=== PATIENT | female | born 1985 | race American Indian/Alaskan Native ===

== ENCOUNTER 2018-11-20 11:09 | Emergency (ER) | payer OTHER ==
[2018-11-20 11:41] VITALS: BP 119/62
--- NOTE | 2018-11-20 12:53 | Emergency Department Report ---
ED Female HPI - General Chief complaint: Abdominal Pain Stated complaint: VAGINAL INFECTION/SINUS Time Seen by Provider: 11/20/18 12:37 Source: patient Mode of arrival: Ambulatory Limitations: No Limitations - History of Present Illness Initial comments: This is a 33 year-old female presents with vaginal discharge and sinus congestion for 2 months. Patient states she took Monistat 3 day with symptoms initially started which improved discharge for a few days and then shortly returned. Patient reports itching to labia majora. Her last menstrual. The symptoms 2017, 82. She denies pelvic pain, back pain, vaginal bleeding, urinary frequency, urgency, hematuria, and dysuria. MD Complaint: vaginal discharge Onset/Timin -: month(s) Location: labia Radiation: non-radiating Severity: mild Severity scale (0 -10): 0 Quality: other (itching) Consistency: constant Improves with: none Worsens with: none Are you Now?: Yes Last Menstrual Period: 09/04/18 EDC: 06/11/19 Associated Symptoms: denies other symptoms - Related Data Sexually active: Yes : 6 Para: 4 A: 2 (stillbirth) Previous Rx's Medication Instructions Recorded Last Taken Type Fluticasone [Flonase] 1 spray NS QDAY #1 bottle 11/20/18 Unknown Rx Miconazole Nitrate [Miconazole 7] 100 mg VG QHS #7 supp.vag 11/20/18 Unknown Rx metroNIDAZOLE [Flagyl TAB] 500 mg PO Q12HR #14 tab 11/20/18 Unknown Rx Allergies Allergy/AdvReac Type Severity Reaction Status Date / Time No Known Allergies Allergy Unverified 11/20/18 11:10 ED Review of Systems ROS: Stated complaint: VAGINAL INFECTION/SINUS Other details as noted in HPI Constitutional: denies: chills, fever ENT: congestion. denies: ear pain, throat pain Respiratory: denies: cough, shortness of breath, wheezing Cardiovascular: denies: chest pain, palpitations Gastrointestinal: denies: abdominal pain, nausea, diarrhea Genitourinary: discharge. denies: urgency, dysuria Musculoskeletal: denies: back pain, joint swelling, arthralgia Neurological: denies: headache, weakness, paresthesias Psychiatric: denies: anxiety, depression ED Past Medical Hx - Past Medical History Previous Medical History?: No - Surgical History Past Surgical History?: No - Social History Smoking Status: Never Smoker Substance Use Type: None - Medications Home Medications: Home Medications Medication Instructions Recorded Confirmed Last Taken Type Fluticasone [Flonase] 1 spray NS QDAY #1 bottle 11/20/18 Unknown Rx Miconazole Nitrate [Miconazole 7] 100 mg VG QHS #7 supp.vag 11/20/18 Unknown Rx metroNIDAZOLE [Flagyl TAB] 500 mg PO Q12HR #14 tab 11/20/18 Unknown Rx ED Physical Exam - General Limitations: No Limitations General appearance: alert, in no apparent distress - ENT ENT exam: Present: normal orophraynx, mucous membranes moist, TM's normal bilaterally, normal external ear exam, other (turbinates mildly congested with clear discharge). Absent: mucous membranes dry - Respiratory Respiratory exam: Present: normal lung sounds bilaterally. Absent: respiratory distress - Cardiovascular Cardiovascular Exam: Present: regular rate, normal rhythm. Absent: systolic murmur, diastolic murmur, rubs, gallop - GI/Abdominal GI/Abdominal exam: Present: soft, normal bowel sounds - External exam: Present: normal external exam. Absent: erythema, swelling, lesions, lacerations, ecchymosis, bleeding Speculum exam: Present: vaginal discharge (malodorous white discharge). Absent: cervical discharge, vaginal bleeding, foreign body, tissue, laceration Bi-manual exam: Present: uterine enlargement. Absent: cervical motion tendernes - Back Exam Back exam: Absent: CVA tenderness (R), CVA tenderness (L) - Neurological Exam Neurological exam: Present: alert, oriented X3 - Psychiatric Psychiatric exam: Present: normal affect, normal mood - Skin Skin exam: Present: warm, dry, intact, normal color. Absent: rash ED Course Vital Signs 11/20/18 11:39 Temperature 98 F Pulse Rate 91 H Respiratory 16 Rate Blood Pressure 119/62 [Left] O2 Sat by Pulse 100 Oximetry ED Medical Decision Making - Medical Decision Making This is a 33-year-old -[place] female who presents with vaginal irritation and discharge for 2 month. Patient was examined by me. Vitals are stable and in no acute distress. Pelvic exam, wet prep and gonorrhea and chlamydia obtained. Urinalysis and urine test obtained. Positive , patient is 3 months . Urinalysis mild elevation of WBCs and leukocyte esterase. Positive he yeast and clue cells on wet prep. Start metronidazole and miconazole for acute vaginitis and vaginal yeast infection. Discharged home in stable condition. Discussed prevention options. F/U with [facility] INTER[facility]ION[facility]. Critical care attestation.: If time is entered above; I have spent that time in minutes in the direct care of this critically ill patient, excluding procedure time. ED Disposition Clinical Impression: Bacterial vaginitis, Vaginal yeast infection, Vaginal discharge Rhinitis Qualifiers: Rhinitis type: acute Qualified Code(s): J00 - Acute nasopharyngitis [common cold] Disposition: TO HOME OR SELFCARE Is pt being admited?: No Does the pt Need Aspirin: No Condition: Stable Instructions: Abdominal Pain (ED), Bacterial Vaginosis (ED) Additional Instructions: Complete full course of antibiotics since prescribed. Continue safe sexual intercourse. Take Claritin once a day for congestion. 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 Prescriptions: Miconazole Nitrate [Miconazole 7] 100 mg VG QHS #7 supp.vag metroNIDAZOLE [Flagyl TAB] 500 mg PO Q12HR #14 tab Fluticasone [Flonase] 1 spray NS QDAY #1 bottle [facility] AWIL[facility] [Primary Care Provider] - 3-5 Days [facility] [Provider Group] - 3-5 Days [facility] [Provider Group] - 3-5 Days [facility] [Provider Group] - 3-5 Days Forms: STI Treatment and Prevention Time of Disposition: 14:27
[2018-11-20 13:10] LABS: Bacteria,Urine 2+ /HPF (Negative); Bilirubin,Urine NEG (Negative); Blood,Urine NEG (Negative); Color,Urine Amber (Yellow); Mucus,Urine 3+ /HPF
[2018-11-20 13:12] LABS: HCG Qualitative,Urine Positive (Negative)
== END 2018-11-20 14:45 | disposition home or self-care (01) ==
LOC: ED 11:09
DX: O23.591 Infection of other part of genital tract in pregnancy, first trimester (principal); B96.89 Other specified bacterial agents as the cause of diseases classified elsewhere; O98.811 Other maternal infectious and parasitic diseases complicating pregnancy, first trimester; B37.9 Candidiasis, unspecified; O99.511 Diseases of the respiratory system complicating pregnancy, first trimester; J31.0 Chronic rhinitis; Z3A.12 12 weeks gestation of pregnancy
CPT/HCPCS: 36415; 81001; 81025; 84703; 87210; 87591

== ENCOUNTER 2019-02-03 02:06 | Inpatient (IN) | payer OTHER ==
[2019-02-03 02:54] LABS: Basophils % (Auto) 0.4 % (0.0-1.8); Eosinophils # (Auto) 0.4 K/mm3 (0.0-0.4); Eosinophils % (Auto) 3.9 % (0.0-4.3); Hematocrit 22.9 % (30.3-42.9); Hemoglobin 6.8 gm/dl (10.1-14.3); Lymphocytes # (Auto) 2.5 K/mm3 (1.2-5.4); Lymphocytes % (Auto) 27.6 % (13.4-35.0); Mean Corpuscular HGB Conc 30 % (30-34); Monocytes # (Auto) 0.8 K/mm3 (0.0-0.8); Monocytes % (Auto) 8.8 % (0.0-7.3); Platelet Count 428 K/mm3 (140-440); Red Blood Count 3.98 M/mm3 (3.65-5.03)
[2019-02-03 03:08] LABS: BUN/Creatinine Ratio 12; Blood Urea Nitrogen 6 mg/dL (7-17); Calcium 8.4 mg/dL (8.4-10.2); Hemolysis Index 1
[2019-02-03 03:13] LABS: Mean Corpuscular Volume 58 fl (79-97); Red Cell Distribution Width 21.7 % (13.2-15.2)
--- NOTE | 2019-02-03 06:19 | Emergency Department Report ---
ED General Adult HPI - General Chief complaint: Headache Stated complaint: HEADACHE, LIGHT HEADED, LOWER BACK PAIN Time Seen by Provider: 02/03/19 06:18 Source: patient Mode of arrival: Ambulatory Limitations: No Limitations - History of Present Illness Initial comments: 33-year-old female believes that she is anemic like her previous 2 pregnancies. She states that she gets a headache when she is anemic but it is not severe. She does not complain of headache at this time. She came to the emergency Department simply because she felt like she probably needed a transfusion. She does have some generalized weakness but is not complaining of dyspnea at rest. She is 20 weeks and 5 days. She reports no signs of GI bleeding. She does not have an OB physician. -: Gradual, week(s) Location: head Severity scale (0 -10): 0 Consistency: now resolved Improves with: none Worsens with: none Associated Symptoms: weakness - Related Data Previous Rx's Medication Instructions Recorded Last Taken Type Fluticasone [Flonase] 1 spray NS QDAY #1 bottle 11/20/18 Unknown Rx Miconazole Nitrate [Miconazole 7] 100 mg VG QHS #7 supp.vag 11/20/18 Unknown Rx metroNIDAZOLE [Flagyl TAB] 500 mg PO Q12HR #14 tab 11/20/18 Unknown Rx Allergies Allergy/AdvReac Type Severity Reaction Status Date / Time No Known Allergies Allergy Verified 02/03/19 02:13 ED Review of Systems ROS: Stated complaint: HEADACHE, LIGHT HEADED, LOWER BACK PAIN Other details as noted in HPI Constitutional: weakness. denies: chills, fever Eyes: denies: eye pain, eye discharge, vision change ENT: denies: ear pain, throat pain Respiratory: denies: cough, shortness of breath, wheezing Cardiovascular: denies: chest pain, palpitations Endocrine: no symptoms reported Gastrointestinal: denies: abdominal pain, nausea, diarrhea Genitourinary: as per HPI (20 weeks ). denies: urgency, dysuria, discharge Musculoskeletal: denies: back pain, joint swelling, arthralgia Skin: denies: rash, lesions Neurological: denies: headache, weakness, paresthesias Psychiatric: denies: anxiety, depression Hematological/Lymphatic: denies: easy bleeding, easy bruising ED Past Medical Hx - Past Medical History Previous Medical History?: No Additional medical history: Prior transfusion with last 2 pregnancies. Denies previous preeclampsia - Surgical History Past Surgical History?: Yes Additional Surgical History: hernia. x5 - Social History Smoking Status: Never Smoker Substance Use Type: None - Medications Home Medications: Home Medications Medication Instructions Recorded Confirmed Last Taken Type Fluticasone [Flonase] 1 spray NS QDAY #1 bottle 11/20/18 Unknown Rx Miconazole Nitrate [Miconazole 7] 100 mg VG QHS #7 supp.vag 11/20/18 Unknown Rx metroNIDAZOLE [Flagyl TAB] 500 mg PO Q12HR #14 tab 11/20/18 Unknown Rx ED Physical Exam - General Limitations: No Limitations General appearance: alert, in no apparent distress - Head Head exam: Present: atraumatic, normocephalic - Eye Eye exam: Present: normal appearance. Absent: scleral icterus - ENT ENT exam: Present: mucous membranes moist - Neck Neck exam: Present: normal inspection. Absent: tenderness, meningismus - Respiratory Respiratory exam: Present: normal lung sounds bilaterally. Absent: respiratory distress - Cardiovascular Cardiovascular Exam: Present: regular rate, normal rhythm. Absent: systolic murmur, diastolic murmur, rubs, gallop - GI/Abdominal GI/Abdominal exam: Present: soft, normal bowel sounds, other (uterus is consiste nt with gestational age. heart rate over 170). Absent: tenderness, guarding, rebound, rigid - Extremities Exam Extremities exam: Present: normal inspection. Absent: pedal edema, joint swelling, calf tenderness - Back Exam Back exam: Present: normal inspection - Neurological Exam Neurological exam: Present: alert, oriented X3, CN II-XII intact. Absent: motor sensory deficit - Psychiatric Psychiatric exam: Present: normal affect, normal mood - Skin Skin exam: Present: warm, dry, intact, normal color. Absent: rash ED Course Vital Signs 02/03/19 02/03/19 02/03/19 02:08 02:10 04:49 Temperature 98.3 F 98.3 F Pulse Rate 83 89 Respiratory 18 18 Rate Blood Pressure 111/58 111/58 Blood Pressure [Left] O2 Sat by Pulse 99 99 99 Oximetry 02/03/19 02/03/19 02/03/19 05:00 05:10 05:13 Temperature 98.4 F Pulse Rate 76 Respiratory 20 20 Rate Blood Pressure 94/52 Blood Pressure 94/52 [Left] O2 Sat by Pulse 96 97 99 Oximetry 02/03/19 02/03/19 02/03/19 05:15 05:30 05:45 Temperature Pulse Rate Respiratory Rate Blood Pressure 96/53 95/58 98/50 Blood Pressure [Left] O2 Sat by Pulse 97 Oximetry 02/03/19 02/03/19 02/03/19 06:00 06:15 06:30 Temperature Pulse Rate Respiratory Rate Blood Pressure 102/57 93/55 97/57 Blood Pressure [Left] O2 Sat by Pulse 96 Oximetry 02/03/19 06:45 Temperature Pulse Rate Respiratory Rate Blood Pressure 102/56 Blood Pressure [Left] O2 Sat by Pulse Oximetry - Reevaluation(s) Reevaluation #1: Discussed with Dr. Tirado, jeep driver. Give patient 2 units. Admit to mother/baby. Nasal cannula at 2 L. 02/03/19 07:20 ED Medical Decision Making - Lab Data Result diagrams: 02/03/19 02:23 02/03/19 02:23 Laboratory Results - last 24 hr 02/03/19 02/03/19 02/03/19 02:23 02:23 02:23 WBC 9.1 RBC 3.98 Hgb 6.8 L Hct 22.9 L MCV 58 L MCH 17 L MCHC 30 RDW 21.7 H Plt Count 428 Lymph % (Auto) 27.6 [place] % (Auto) 8.8 H Eos % (Auto) 3.9 Baso % (Auto) 0.4 Lymph # 2.5 [place] # 0.8 Eos # 0.4 Baso # 0.0 Seg Neutrophils % 59.3 Seg Neutrophils # 5.4 Sodium 136 L Potassium 3.5 L Chloride 102.5 Carbon Dioxide 23 Anion Gap 14 BUN 6 L Creatinine 0.5 L Estimated GFR > 60 BUN/Creatinine Ratio 12 Glucose 82 Calcium 8.4 HCG, Quant 21814 H Blood Type Antibody Screen 02/03/19 03:49 WBC RBC Hgb Hct MCV MCH MCHC RDW Plt Count Lymph % (Auto) [place] % (Auto) Eos % (Auto) Baso % (Auto) Lymph # [place] # Eos # Baso # Seg Neutrophils % Seg Neutrophils # Sodium Potassium Chloride Carbon Dioxide Anion Gap BUN Creatinine Estimated GFR BUN/Creatinine Ratio Glucose Calcium HCG, Quant Blood Type O POSITIVE Antibody Screen Negative Critical care attestation.: If time is entered above; I have spent that time in minutes in the direct care of this critically ill patient, excluding procedure time. ED Disposition Clinical Impression: Symptomatic anemia, 20 weeks gestation of , tachycardia Disposition: OP ADMIT IP TO THIS HOSP Is pt being admited?: No Does the pt Need Aspirin: No Condition: Stable Referrals: JANE PULLIAM MD [Primary Care Provider] - 3-5 Days Time of Disposition: 07:22
[2019-02-03] MEDS ORDERED: NACL 0.9% 500 ML 500 ML IV ONE ×2 (06:20→07:22)
[2019-02-03] MEDS ORDERED: TYLENOL PO PRN (09:30)
--- NOTE | 2019-02-03 09:53 | History and Physical Report ---
History of Present Illness Date of admission: 02/03/19 07:23 Chief complaint: "my iron is low" History of present illness: 33yo , 21 5/7 wks with history of 5 previous sections presents, to ED complaining that she believes she needs a blood transfusion. She states "This baby is ruining my body. I'm not keeping it." When asked if she felt lightheaded or had a headache after asking multiple times, the patient begrudgingly states "yes." She states I'm not having this baby I'm scheduled for an on Saturday at [facility] in [facility]. She has not sought a doctor for this . She has history of 3-4 blood transfusions over the last 3 years. She denies chest pain or shortness of breath. She asks if she can be discharged after her blood transfusion because she has other children to take care of. 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) Social history: lives with family - Obstetrical History : 6 Hx # Term Pregnancies: 4 Number of Pregnancies: 1 Number of Living Children: 4 (age 15, 13, 3 and 2; loss of second trimester twins 10 years ago) Medications and Allergies Allergies Allergy/AdvReac Type Severity Reaction Status Date / Time No Known Allergies Allergy Verified 02/03/19 02:13 Home Medications Medication Instructions Recorded Confirmed Last Taken Type Fluticasone [Flonase] 1 spray NS QDAY #1 bottle 11/20/18 Unknown Rx Miconazole Nitrate [Miconazole 7] 100 mg VG QHS #7 supp.vag 11/20/18 Unknown Rx metroNIDAZOLE [Flagyl TAB] 500 mg PO Q12HR #14 tab 11/20/18 Unknown Rx Active Meds: Active Medications Acetaminophen (Tylenol) 650 mg PO Q4H PRN PRN Reason: Pain, Mild (1-3) Last Admin: 02/03/19 09:26 Dose: 650 mg Documented by: - Vital Signs Vital signs: Vital Signs Temp Pulse Resp BP Pulse Ox 98.3 F 83 18 111/58 99 02/03/19 02:08 02/03/19 02:08 02/03/19 02:08 02/03/19 02:08 02/03/19 02:08 Temp Pulse Resp BP Pulse Ox 98.5 F 85 18 85/47 98 02/03/19 09:45 02/03/19 09:52 02/03/19 09:45 02/03/19 09:52 02/03/19 08:15 - Obstetrical FHR: auscultation normal (FHT confirmed on admission and prior to discharge. ) Results Result Diagrams: 02/03/19 16:00 02/03/19 02:23 Abnormal lab results 02/03/19 02/03/19 02/03/19 Range/Units 02:23 02:23 02:23 Hgb 6.8 L (10.1-14.3) gm/dl Hct 22.9 L (30.3-42.9) % MCV 58 L (79-97) fl MCH 17 L (28-32) pg RDW 21.7 H (13.2-15.2) % Caroline % (Auto) 8.8 H (0.0-7.3) % Sodium 136 L (137-145) mmol/L Potassium 3.5 L (3.6-5.0) mmol/L BUN 6 L (7-17) mg/dL Creatinine 0.5 L (0.7-1.2) mg/dL HCG, Quant 78933 H (0-4) mIU/mL Crossmatch 02/03/19 Range/Units 03:49 Hgb (10.1-14.3) gm/dl Hct (30.3-42.9) % MCV (79-97) fl MCH (28-32) pg RDW (13.2-15.2) % Caroline % (Auto) (0.0-7.3) % Sodium (137-145) mmol/L Potassium (3.6-5.0) mmol/L BUN (7-17) mg/dL Creatinine (0.7-1.2) mg/dL HCG, Quant (0-4) mIU/mL Crossmatch See Detail All other labs normal. Assessment and Plan - Patient Problems (1) 21 weeks gestation of Status: Acute Plan to address problem: Counseled patient on need to find obstetricain JASON. Recommend [facility] such a [place] due to HIGH RISK OF PREVIOUS FIVE SECTIONS. Discussed risk of UTERINE RUPTURE and PLACENTA ACCRETA. Patient then states she is terminating this week. (2) Symptomatic anemia Status: Acute Plan to address problem: Transfuse 2 units pRBCs. Will reassess and consider discharge home after post-transfusion H/H.
[2019-02-03 16:07] LABS: Hematocrit 25.3 % (30.3-42.9); Hemoglobin 7.7 gm/dl (10.1-14.3); Mean Corpuscular HGB Conc 30 % (30-34); Platelet Count 361 K/mm3 (140-440); Red Blood Count 4.03 M/mm3 (3.65-5.03)
[2019-02-03 16:15] LABS: Mean Corpuscular Volume 63 fl (79-97); Red Cell Distribution Width 28.2 % (13.2-15.2)
[2019-02-03 16:18] LABS: Bacteria,Urine 1+ /HPF (Negative); Bilirubin,Urine NEG (Negative); Blood,Urine NEG (Negative); Color,Urine Yellow (Yellow); Mucus,Urine 3+ /HPF; Protein,Urine <15 mg/dL mg/dL (Negative)
[2019-02-03 16:19] LABS: WBC,Urine < 1.0 /HPF (0.0-6.0)
[2019-02-03 16:59] VITALS: BP 100/57
[2019-02-03 17:49] LABS: Basophils % (Manual) 0 % (0.0-1.8); Hypochromasia 2+; Total Cells Counted 100
[2019-02-03 17:50] LABS: Dimorphic RBC Yes; Ovalocytes 1+; Tear Drop Cells Few
[2019-02-03 17:51] LABS: Platelet Estimate Consistent w Auto
== END 2019-02-03 17:31 | disposition home or self-care (01) | DRG 781 ==
LOC: ED 02:06 → OB 07:23 → LD 08:18
PROVIDERS: ADMIT Obstetrics & Gynecology; ATTEND Obstetrics & Gynecology
PROC: 30243N1 Transfusion of Nonautologous Red Blood Cells into Central Vein, Percutaneous Approach (ICD-10-PCS; principal; 2019-02-03)
DX: O99.012 Anemia complicating pregnancy, second trimester (principal); O76 Abnormality in fetal heart rate and rhythm complicating labor and delivery; R51 Headache; D64.9 Anemia, unspecified; Z3A.20 20 weeks gestation of pregnancy
CPT/HCPCS: 36415; 36430; 80048; 81001; 84702; 85007; 85025; 86850; 86900; 86901; 86920; G0378; J7040; P9016

== ENCOUNTER 2020-07-15 18:29 | Emergency (ER) | payer OTHER ==
[2020-07-15 20:13] LABS: Basophils % (Auto) 0.5 % (0.0-1.8); Eosinophils % (Auto) 0.6 % (0.0-4.3); Lymphocytes # (Auto) 1.7 K/mm3 (1.2-5.4); Lymphocytes % (Auto) 25.9 % (13.4-35.0); Mean Corpuscular HGB Conc 30 % (30-34); Monocytes # (Auto) 0.5 K/mm3 (0.0-0.8); Monocytes % (Auto) 8.5 % (0.0-7.3); Platelet Count 456 K/mm3 (140-440)
[2020-07-15 20:16] LABS: Hemoglobin 8.6 gm/dl (10.1-14.3); Mean Corpuscular Volume 62 fl (79-97); Red Cell Distribution Width 21.5 % (13.2-15.2)
[2020-07-15 20:28] LABS: Alanine Aminotransferase 14 units/L (7-56); Albumin 4.2 g/dL (3.9-5); Blood Urea Nitrogen 8 mg/dL (7-17); Calcium 9.6 mg/dL (8.4-10.2); Hemolysis Index 1
[2020-07-15 20:33] LABS: BUN/Creatinine Ratio 11
[2020-07-16] MEDS ORDERED: ONDANSETRON 4 MG/2 ML INJ IM ONE (01:44)
[2020-07-16] MEDS ORDERED: BUTALB/ACETAMINOPHEN/CAFFEINE TAB PO ONE (01:44)
[2020-07-16] MEDS ORDERED: fentaNYL 100 MCG/2 ML INJ IM ONE (01:44)
--- NOTE | 2020-07-16 01:49 | Emergency Department Report ---
HPI - General Chief Complaint: Neuro Symptoms/Deficit Time Seen by Provider: 07/16/20 01:26 - HPI HPI: Room 24 The patient is a 35-year-old female present with a chief complaint of headache. The patient states for 1 week she has had intermittent diffuse headache described as sharp in nature and associated with feeling off balance, nausea/vomiting and light sensitivity. Patient states at times she sees colored patterns. The patient states she would have symptoms 2-3 times a day initially but the frequency has increased. Patient states the symptoms usually last approximately 1 hour before dissipating. Patient denies any preceding trauma, fever or contact with known Covid positive patients. There is been no family history of migraine headaches. Patient currently gives her headache a score of 5/10. The patient states she has had a left breast mass for several weeks but has not yet had it evaluated. The patient was brought to the emergency department by her family member and is not driving ED Past Medical Hx - Past Medical History Previous Medical History?: Yes Additional medical history: Anemia - Surgical History Past Surgical History?: Yes Additional Surgical History: hernia. x5 - Family History Family history: no significant - Social History Smoking Status: Never Smoker Substance Use Type: None (Denies illicit drug use) - Medications Home Medications: Home Medications Medication Instructions Recorded Confirmed Last Taken Type Fluticasone [Flonase] 1 spray NS QDAY #1 bottle 11/20/18 Unknown Rx Miconazole Nitrate [Miconazole 7] 100 mg VG QHS #7 supp.vag 11/20/18 Unknown Rx metroNIDAZOLE [Flagyl TAB] 500 mg PO Q12HR #14 tab 11/20/18 Unknown Rx ED Review of Systems ROS: Stated complaint: NAUSEA/HEADACHE/LFT HAND TINGLE Other details as noted in HPI Constitutional: denies: fever Eyes: vision change ENT: denies: throat pain Respiratory: no symptoms reported Cardiovascular: denies: chest pain Endocrine: no symptoms reported Gastrointestinal: nausea, vomiting Genitourinary: denies: dysuria Musculoskeletal: denies: back pain Neurological: headache Physical Exam - Physical Exam Vital Signs: Vital Signs 07/15/20 07/15/20 19:39 20:33 Temperature 98.5 F Pulse Rate 65 Respiratory 18 Rate Blood Pressure 141/77 O2 Sat by Pulse 96 Oximetry Physical Exam: GENERAL: The patient is well-developed well-nourished female lying on stretcher not appearing to be in acute distress. [] HEENT: Normocephalic. Atraumatic. Extraocular motions are intact. Patient has moist mucous membranes. NECK: Supple. No meningitic signs are noted. There is no nuchal rigidity CHEST/LUNGS: Clear to auscultation. There is no respiratory distress noted. HEART/CARDIOVASCULAR: Regular. There is no tachycardia. There is no gallop rub or murmur. ABDOMEN: Abdomen is soft, nontender. Patient has normal bowel sounds. There is no abdominal distention. SKIN: There is no rash. There is no edema. There is no diaphoresis. NEURO: The patient is awake, alert, and oriented. The patient is cooperative. The patient has no focal neurologic deficits. The patient has normal speech and gait. Cranial nerves II through XII grossly intact. Negative Romberg MUSCULOSKELETAL: There is no evidence of acute injury. GENITOURINARY: Large palpable masses in the left breast at the 2:00, 11:00 and 8:00 positions. Skin changes consistent with peau d'orange appreciated. Left axilla adenopathy ED Course Vital Signs 07/15/20 07/15/20 19:39 20:33 Temperature 98.5 F Pulse Rate 65 Respiratory 18 Rate Blood Pressure 141/77 O2 Sat by Pulse 96 Oximetry - Consultations Consultation #1: 07/16/20 04:26 Neurosurgery paged 07/16/20 05:[address] Bob-recommends Decadron 10 mg and Keppra 1 g and have patient transferred to [facility] to the ICU. Will consult Consultation #2: 07/16/20 05:01 [facility] transfer center called ED Medical Decision Making - Lab Data Result diagrams: 07/15/20 19:49 07/15/20 19:49 - Radiology Data Radiology results: report reviewed (CT head), image reviewed (CT head) [facility] [address] [place] [address] Cat Scan Report Signed Patient: LA FORD MR#: [id number] : 1985 Acct:[id number] Age/Sex: 35 / F ADM Date: 07/15/20 Loc: ED Attending Dr: Ordering Physician: CONRAD NASH MD Date of Service: 10/31/20 Procedure(s): CT head/brain wo con Accession Number(s): [id number] cc: CONRAD NASH MD CT head without contrast INDICATION : Nausea vomiting with headache. TECHNIQUE: Axial imaging performed from the skull apex through the skull base without the use of contrast. All CT examinations performed at this facility utilize dose modulation, iterative reconstruction or weight-based dosing, when appropriate, to reduce radiation dose to as low as reasonably achievable. COMPARISON: None FINDINGS: There is severe vasogenic edema identified throughout the deep white matter of the left frontal, temporal and parietal lobe. This causes significant left to right hemispheric shift measuring approximately 1.3 cm in diameter. The mass effect causes significant effacement of the left lateral ventricle. There appears to be a mass measuring approximately 3.2 cm in diameter within the far superior aspect of the left frontal lobe. The skull is intact. The orbits are unremarkable. IMPRESSION: Large left-sided intracranial mass that appears to be arising from the superior aspect of the left frontal lobe measuring about 3 cm in diameter. This mass is causing severe vasogenic edema of the left frontoparietal lobe and is causing significant left to right hemispheric shift, as above. Recommend MRI of the brain with IV contrast for further evaluation. Signer Name: Waldo Jackson MD Signed: 07/16/2020 3:54 AM Workstation Name: [id number] Transcribed By: BC Dictated By: Waldo Jackson MD Electronically Authenticated By: Waldo Jackson MD Signed Date/Time: 07/16/20 0354 DD/ 0349 TD/TT: - Differential Diagnosis Migraines, intracranial mass, breast CA Critical care attestation.: If time is entered above; I have spent that time in minutes in the direct care of this critically ill patient, excluding procedure time. ED Disposition Clinical Impression: Brain mass, Headache, Mass of multiple sites of left breast Disposition: DC-01 TO HOME OR SELFCARE Is pt being admited?: No Does the pt Need Aspirin: No Condition: Stable Referrals: PRIMARY CARE, [Primary Care Provider] - 3-5 Days
--- NOTE | 2020-07-16 03:58 | Cat Scan Report ---
CT head without contrast INDICATION : Nausea vomiting with headache. TECHNIQUE: Axial imaging performed from the skull apex through the skull base without the use of con trast. All CT examinations performed at this facility utilize dose modulation, iterative reconstruct ion or weight-based dosing, when appropriate, to reduce radiation dose to as low as reasonably achiev able. COMPARISON: None FINDINGS: There is severe vasogenic edema identified throughout the deep white matter of the left fro ntal, temporal and parietal lobe. This causes significant left to right hemispheric shift measuring a pproximately 1.3 cm in diameter. The mass effect causes significant effacement of the left lateral ve ntricle. There appears to be a mass measuring approximately 3.2 cm in diameter within the far superio r aspect of the left frontal lobe. The skull is intact. The orbits are unremarkable. IMPRESSION: Large left-sided intracranial mass that appears to be arising from the superior aspect of the left frontal lobe measuring about 3 cm in diameter. This mass is causing severe vasogenic edema of the left frontoparietal lobe and is causing significant left to right hemispheric shift, as above. Recommend MRI of the brain with IV contrast for further evaluation. Signer Name: Waldo Jackson MD Signed: 07/16/2020 3:54 AM Workstation Name: [id number]
[2020-07-16] MEDS ORDERED: dexAMETHasone 20 MG/5 ML VIAL IV ONE (04:22)
[2020-07-16] MEDS ORDERED: levETIRAcetam 1000 MG/NS 0.75% 1,000 MG/100 ML BAG IV ONE (05:00)
[2020-07-16 05:29] VITALS: BP 134/71
== END 2020-07-16 09:57 | disposition home or self-care (01) ==
LOC: ED 18:29
DX: N63.0 Unspecified lump in unspecified breast (principal); R22.0 Localized swelling, mass and lump, head; R51.9 Headache, unspecified; Z98.890 Other specified postprocedural states; Z79.899 Other long term (current) drug therapy
CPT/HCPCS: 36415; 70450; 80053; 83690; 84703; 85025; 96365; 96366; 96372; 96375; 99285; J1100; J1953; J2405; J3010

== ENCOUNTER 2020-08-04 21:21 | Emergency (ER) | payer OTHER ==
[2020-08-04 21:42] VITALS: BP 128/66
--- NOTE | 2020-08-04 22:45 | Cat Scan Report ---
CT head/brain wo con INDICATION: Head pain after fall. TECHNIQUE: Routine CT head without contrast. All CT scans at this location are performed using CT dose reduction for ALARA by means of automated exposure control. COMPARISON: Head CT on 07/16/2020 FINDINGS: BRAIN / INTRACRANIAL CONTENTS: No acute hemorrhage, brain edema, mass effect, or hydrocephalus. Annie l kingsley-white differentiation. There are postsurgical changes from left parietal craniotomy and resect ion of the previously described left parietal mass. Adjacent brain edema and mass effect has nearly r esolved since prior exam. There is no acute hemorrhage or adverse mass effect on the current study. CALVARIUM/SKULL BASE/CRANIOCERVICAL JUNCTION: No evidence of fracture. ORBITS: No significant abnormality of visualized orbits. SINUSES / MASTOIDS: No significant abnormality of visualized sinuses and mastoid air cells. ADDITIONAL FINDINGS: None. IMPRESSION: 1. No acute findings. 2. Interval left parietal craniotomy and resection of left parietal mass with resolution of mass effe ct since the prior study. Signer Name: Vikash Saini MD Signed: 08/04/2020 10:41 PM Workstation Name: [id number]
--- NOTE | 2020-08-04 22:48 | Cat Scan Report ---
CT CERVICAL SPINE WITHOUT CONTRAST INDICATION: pain s/p fall. TECHNIQUE: Axial CT images of the spine were obtained. Sagittal and coronal reformatted images were produced. Al l CT scans at this location are performed using CT dose reduction for ALARA by means of automated exp osure control. COMPARISON: None available. FINDINGS: ACUTE FRACTURE(S) OR SUBLUXATION: None. SPINAL DEGENERATIVE CHANGES: There is a heterogeneous lucent lesion replacing the entirety of the C3 vertebral body. Another lucent lesion is seen in the C7 vertebral body. There is associated vertebral body height loss C3 vertebral body but no definite acute fracture. PARASPINAL SOFT TISSUES: No soft tissue swelling or other acute abnormalities. ADDITIONAL FINDINGS: No significant additional findings. IMPRESSION: 1. No definite acute fracture or subluxation in the spine in neutral position. 2. Heterogeneous lucent lesions in the C3 and C7 vertebral bodies. This could be related to the previ ously described intracranial mass depending on the pathology from that lesion. Further characterizati on with MRI of the cervical spine without and with contrast is recommended. Whole-body skeletal surve y could also be useful to evaluate for additional lesions. Signer Name: Vikash Saini MD Signed: 08/04/2020 10:43 PM Workstation Name: [id number]
--- NOTE | 2020-08-04 22:57 | Emergency Department Report ---
HPI - General Chief Complaint: Neck Pain/Injury Time Seen by Provider: 08/04/20 22:40 - HPI HPI: Room 23 The patient is a 35-year-old female present with a chief complaint of headache and neck pain after fall. Patient states approximate 1 hour prior to arrival while getting out of her car she slipped on some leaves and fell. Patient states she braced her fall but she felt her neck turned during the fall and has had pain since. Patient denies ever striking her head or losing consciousness. Patient complains of pain in the neck and occipital region of her head. The patient drove herself to the emergency department and there are no visitors pr esent currently. 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 x5. Brain Tumor removed - Family History Family history: no significant - Social History Smoking Status: Never Smoker Substance Use Type: None (Denies illicit drug use) - Medications Home Medications: Home Medications Medication Instructions Recorded Confirmed Last Taken Type Fluticasone [Flonase] 1 spray NS QDAY #1 bottle 11/20/18 Unknown Rx Miconazole Nitrate [Miconazole 7] 100 mg VG QHS #7 supp.vag 11/20/18 Unknown Rx metroNIDAZOLE [Flagyl TAB] 500 mg PO Q12HR #14 tab 11/20/18 Unknown Rx Cyclobenzaprine [Flexeril] 10 mg PO TID PRN #14 tablet 08/04/20 Unknown Rx HYDROcodone/APAP 5-325 [Wayne 1 - 2 each PO Q6HR PRN #14 tablet 08/04/20 Unknown Rx 5/325] Ibuprofen [Motrin 800 MG tab] 800 mg PO Q8HR PRN #20 tablet 08/04/20 Unknown Rx ED Review of Systems ROS: Stated complaint: FALL Other details as noted in HPI Constitutional: no symptoms reported Eyes: denies: eye pain Respiratory: no symptoms reported Cardiovascular: denies: chest pain Endocrine: no symptoms reported Gastrointestinal: denies: abdominal pain Genitourinary: denies: dysuria Musculoskeletal: arthralgia Neurological: headache Physical Exam - Physical Exam Vital Signs: Vital Signs 08/04/20 21:29 Temperature 98.6 F Pulse Rate 88 Respiratory 18 Rate Blood Pressure 128/66 O2 Sat by Pulse 98 Oximetry Physical Exam: GENERAL: The patient is well-developed well-nourished female sitting on stretcher appearing to be in moderate discomfort. [] HEENT: Normocephalic. Atraumatic. Extraocular motions are intact. Patient has moist mucous membranes. NECK: Supple. Tenderness to palpation mid cervical spine at approximately C7. No step-offs appreciated CHEST/LUNGS: Clear to auscultation. There is no respiratory distress noted. HEART/CARDIOVASCULAR: Regular. There is no tachycardia. There is no gallop rub or murmur. ABDOMEN: Abdomen is soft, nontender. Patient has normal bowel sounds. There is no abdominal distention. SKIN: There is no rash. There is no edema. There is no diaphoresis. NEURO: The patient is awake, alert, and oriented. The patient is cooperative. The patient has no focal neurologic deficits. The patient has normal speech. Cranial nerves II through XII grossly intact MUSCULOSKELETAL: There is tenderness to palpation of the cervical spine. There is no tenderness to palpation of the thoracic or lumbar spine ED Course Vital Signs 08/04/20 21:29 Temperature 98.6 F Pulse Rate 88 Respiratory 18 Rate Blood Pressure 128/66 O2 Sat by Pulse 98 Oximetry ED Medical Decision Making - Radiology Data Radiology results: report reviewed (CT head, CT cervical spine), image reviewed (CT head, CT cervical spine) [address] [address] Cat Scan Report Signed Patient: LA FORD MR#: [id number] : 1985 Acct:[id number] Age/Sex: 35 / F ADM Date: 08/04/20 Loc: ED Attending Dr: Ordering Physician: CONRAD NASH MD Date of Service: 08/04/20 Procedure(s): CT head/brain wo con Accession Number(s): [id number] cc: CONRAD NASH MD CT head/brain wo con INDICATION: Head pain after fall. TECHNIQUE: Routine CT head without contrast. All CT scans at this location are performed using CT dose reduction for ALARA by means of automated exposure control. COMPARISON: Head CT on 07/16/2020 FINDINGS: BRAIN / INTRACRANIAL CONTENTS: No acute hemorrhage, brain edema, mass effect, or hydrocephalus. Normal kingsley-white differentiation. There are postsurgical changes from left parietal craniotomy and resection of the previously described left parietal mass. Adjacent brain edema and mass effect has nearly resolved since prior exam. There is no acute hemorrhage or adverse mass effect on the current study. CALVARIUM/SKULL BASE/CRANIOCERVICAL JUNCTION: No evidence of fracture. ORBITS: No significant abnormality of visualized orbits. SINUSES / MASTOIDS: No significant abnormality of visualized sinuses and mastoid air cells. ADDITIONAL FINDINGS: None. IMPRESSION: 1. No acute findings. 2. Interval left parietal craniotomy and r esection of left parietal mass with resolution of mass effect since the prior study. Signer Name: Vikash Saini MD Signed: 08/04/2020 10:41 PM Workstation Name: [id number] Transcribed By: BRETT Dictated By: Vikash Saini MD Electronically Authenticated By: Vikash Saini MD Signed Date/Time: 08/04/202240 DD/ 39 TD/TT: [place] [address] Cat Scan Report Signed Patient: LA FORD MR#: [id number] : 1985 Acct:[id number] Age/Sex: 35 / F ADM Date: 08/04/20 Loc: ED Attend ing Dr: Ordering Physician: CONRAD NASH MD Date of Service: 08/04/20 Procedure(s): CT cervical spine wo con Accession Number(s): [id number] cc: CONRAD NASH MD CT CERVICAL SPINE WITHOUT CONTRAST INDICATION: pain s/p fall. TECHNIQUE: Axial CT images of the spine were obtained. Sagittal and coronal reformatted images were produced. All CT scans at this location are performed using CT dose reduction for ALARA by means of automated exposure control. COMPARISON: None available. FINDINGS: ACUTE FRACTURE(S) OR SUBLUXATION: None. SPINAL DEGENERATIVE CHANGES: There is a heterogeneous lucent lesion replacing the entirety of the C3 vertebral body. Another lucent lesion is seen in the C7 vertebral body. There is associated haile tebral body height loss C3 vertebral body but no definite acute fracture. PARASPINAL SOFT TISSUES: No soft tissue swelling or other acute abnormalities. ADDITIONAL FINDINGS: No significant additional findings. IMPRESSION: 1. No definite acute fracture or subluxation in the spine in neutral position. 2. Heterogeneous lucent lesions in the C3 and C7 vertebral bodies. This could be related to the previously described intracranial mass depending on the pathology from that lesion. Further characterization with MRI of the cervical spine without and with contrast is recommended. Whole-body skeletal survey could also be useful to evaluate for additional lesions. Signer Name: Vikash Saini MD Signed: 08/04/2020 10:43 PM Workstation Name: [id number] Transcribed By: BRETT Dictated By: Vikash Saini MD Electronically Authenticated By: Vikash Saini MD Signed Date/Time: 07/17 DD/ 40 TD/TT: - Medical Decision Making CT findings and need for follow-up discussed with patient. - Differential Diagnosis Close head injury, ICH, cervical fracture, cervical strain Critical care attestation.: If time is entered above; I have spent that time in minutes in the direct care of this critically ill patient, excluding procedure time. ED Disposition Clinical Impression: Closed head injury, Cervical strain, acute, Abnormal CT scan, cervical spine Disposition: - TO HOME OR SELFCARE Is pt being admited?: No Does the pt Need Aspirin: No Condition: Stable Instructions: Cervical Sprain, Head Injury, Adult, [id number] Additional Instructions: Return to the emergency department should you develop worsening symptoms, inability to tolerate food or liquids, high fever or any other concerns Prescriptions: Cyclobenzaprine [Flexeril] 10 mg PO TID PRN #14 tablet PRN Reason: Muscle Spasm Ibuprofen [Motrin 800 MG tab] 800 mg PO Q8HR PRN #20 tablet PRN Reason: Pain, Moderate (4-6) HYDROcodone/APAP 5-325 [Wayne 5/325] 1 - 2 each PO Q6HR PRN #14 tablet PRN Reason: Pain Referrals: JANE PULLIAM MD [Primary Care Provider] - 3-5 Days STELLA RODNEY II, MD [Staff Physician] - 3-5 Days Time of Disposition: 23:13
[2020-08-04] MEDS ORDERED: KETOROLAC 60 MG/2 ML INJ ONE (23:30)
[2020-08-04] MEDS ORDERED: KETOROLAC 60 MG/2 ML INJ IM ONE (23:35)
[2020-08-04] MEDS ORDERED: HYDROmorphone 1 MG/1 ML INJ IM ONE (23:58)
[2020-08-04] MEDS ORDERED: ONDANSETRON 4 MG/2 ML INJ IM ONE (23:58)
== END 2020-08-05 00:15 | disposition home or self-care (01) ==
LOC: ED 21:21
DX: S09.90XA Unspecified injury of head, initial encounter (principal); S16.1XXA Strain of muscle, fascia and tendon at neck level, initial encounter; R93.7 Abnormal findings on diagnostic imaging of other parts of musculoskeletal system; Z98.890 Other specified postprocedural states; Z79.1 Long term (current) use of non-steroidal anti-inflammatories (NSAID); Z79.899 Other long term (current) drug therapy; W01.0XXA Fall on same level from slipping, tripping and stumbling without subsequent striking against object, initial encounter; Y93.89 Activity, other specified; Y92.89 Other specified places as the place of occurrence of the external cause; Y99.8 Other external cause status
CPT/HCPCS: 70450; 72125; 96372; 99283; J1170; J1885; J2405